=== PATIENT | male | born 1955 | race Caucasian/White ===

== ENCOUNTER 2023-01-31 21:24 | Emergency (ER) | payer MEDICARE, BC ==
[~2023-01-31] VITALS: Ht 182.9 cm; Wt 106.6 kg
[2023-01-31] MEDS ORDERED: ERYTHROMYCIN BASE OPHTH 3.5 GM TUBE ONE (21:57)
[2023-01-31] MEDS ORDERED: ERYT3.5O9 EACHEYE (21:58)
[2023-01-31] MEDS ORDERED: ERYTHROMYCIN BASE OPHTH 3.5 GM TUBE OP ONE (22:00)
[2023-01-31 22:01] VITALS: BP 136/76; TEMP 98
[2023-01-31 22:07] VITALS: O2SAT 98
== END 2023-01-31 22:07 | disposition home or self-care (01) ==
LOC: ER 21:24
DX: H10.9 Unspecified conjunctivitis (principal); I10 Essential (primary) hypertension; E11.9 Type 2 diabetes mellitus without complications